=== PATIENT | male | born 1980 | race Caucasian/White ===

== ENCOUNTER 2020-07-14 13:31 | Emergency (ER) | payer OTHER ==
[2020-07-14] MEDS ORDERED: Sodium Chloride 0.9% 2.5 ML Syringe FLUSH PRN (15:41)
[2020-07-14] MEDS ORDERED: Sodium Chloride 0.9% 10 ML Syringe FLUSH PRN (15:41)
[2020-07-14] MEDS ORDERED: Ondansetron 4 MG/2 ML SDV IVPUSH ONE (15:42)
[2020-07-14] MEDS ORDERED: Morphine 4 MG/ML Syringe IVPUSH ONE (15:42)
[2020-07-14] MEDS ORDERED: Lactated Ringers 1,000 ML IV ONE (15:42)
--- NOTE | 2020-07-14 15:45 | EDM.PDOC ---
ED HPI GENERAL MEDICAL PROBLEM - General Chief Complaint: Gastrointestinal Problem Stated Complaint: BLOOD IN STOOL Time Seen by Provider: 07/14/20 15:32 - History of Present Illness INITIAL COMMENTS - FREE TEXT/NARRATIVE: 40-year-old male history of back pain she is in the past multiple prior abdominal surgeries as well as IBS was presenting with some large painful bowel movements cramping lower abdominal pain and bright red blood per rectum. Patient states that he had a very large uncomfortable bowel movement yesterday was associated with some sweating and lightheadedness. He has some blood at the very end of this visit became more diarrhea-like. He had similar blood and mucus-like bowel movements.the course of the day today. No chest pain moderate currently 6 out of 10 cramping suprapubic abdominal pain is associated with this no nausea no vomiting no fevers. Pain worsens with bowel movements no alleviating factors or other associated symptoms. abdomen Pain Score (Numeric/FACES): 3 - Related Data Allergies Allergy/AdvReac Type Severity Reaction Status Date / Time No Known Allergies Allergy Verified 07/14/20 15:53 Home Meds: Home Meds Baclofen 1 tab PO BID 07/14/20 [History] Cetirizine HCl [Zyrtec] 1 tab PO DAILY 07/14/20 [History] Dicyclomine [Bentyl] 20 mg PO QIDACANDBED PRN 6 Days #24 tab 07/14/20 [Rx] Hydrocortisone Acetate 25 mg RC BID 7 Days #14 supp.rect 07/14/20 [Rx] ED ROS GENERAL - Review of Systems Review Of Systems: See Below Free Text/Narrative/Comment: General: No fever. Skin: No rash. Eyes: No vision problems. ENT: No sore throat. Neck: No neck stiffness. Respiratory: No shortness of breath. Cardiac: No chest pain. Gastrointestinal: Per HPI Urinary: No dysuria. Musculoskeletal: No myalgias/arthralgias. Neurologic: No headache. ED EXAM, GENERAL - Physical Exam Exam: See Below Free Text/Narrative:: General Appearance: No acute distress, appears comfortable Skin: No rash HEENT: Normocephalic/atraumatic, sclera anicteric, mucous membranes dry Neck: Normal range of motion Chest and Lungs: Bilateral breath sounds, clear to auscultation Cardiovascular: Regular rate and rhythm, no murmur Abdomen: Suprapubic tenderness without guarding or rebound Back: Normal Musculoskeletal: No edema or tenderness Neurologic: Awake, alert, no obvious deficits, moving all extremities Psychiatric: Appropriate, cooperative Course - Vital Signs Last Recorded V/S: Last Vital Signs Temp Pulse 60 07/14/20 18:50 Resp 16 07/14/20 18:50 BP 123/77 07/14/20 18:50 Pulse Ox 95 07/14/20 18:50 - Orders/Labs/Meds Orders: Active Orders 24 hr Category Date Time Status Saline Lock Insert [OM.PC] Stat Oth 07/14/20 15:41 Ordered Labs: Laboratory Tests 07/14/20 07/14/20 Range/Units 16:00 16:28 WBC 16.58 H (4.0-11.0) K/uL RBC 4.87 (4.50-5.90) M/uL Hgb 15.4 (13.0-17.0) g/dL Hct 42.7 (38.0-50.0) % MCV 87.7 (80.0-98.0) fL MCH 31.6 (27.0-32.0) pg MCHC 36.1 (31.0-37.0) g/dL RDW Std Deviation 38.2 (28.0-62.0) fl RDW Coeff of Romulo 12 (11.0-15.0) % Plt Count 249 (150-400) K/uL MPV 10.10 (7.40-12.00) fL Neut % (Auto) 82.1 H (48.0-80.0) % Lymph % (Auto) 11.3 L (16.0-40.0) % [place] % (Auto) 6.4 (0.0-15.0) % Eos % (Auto) 0.1 (0.0-7.0) % Baso % (Auto) 0.1 (0.0-1.5) % Neut # (Auto) 13.6 H (1.4-5.7) K/uL Lymph # (Auto) 1.9 (0.6-2.4) K/uL [place] # (Auto) 1.1 H (0.0-0.8) K/uL Eos # (Auto) 0.0 (0.0-0.7) K/uL Baso # (Auto) 0.0 (0.0-0.1) K/uL Nucleated RBC % 0.0 /100WBC Nucleated RBCs # 0 K/uL Sodium 143 (136-148) mmol/L Potassium 4.0 (3.5-5.1) mmol/L Chloride 107 (98-107) mmol/L Carbon Dioxide 25.0 (21.0-32.0) mmol/L BUN 13 (7.0-18.0) mg/dL Creatinine 1.0 (0.8-1.3) mg/dL Est Cr Clr Drug Dosing 95.95 mL/min Estimated GFR (MDRD) > 60.0 ml/min Glucose 119 H (74-106) mg/dL Calcium 8.9 (8.5-10.1) mg/dL Total Bilirubin 0.4 (0.2-1.0) mg/dL AST 20 (15-37) IU/L ALT 76 H (14-63) IU/L Alkaline Phosphatase 64 (46-116) U/L Total Protein 7.2 (6.4-8.2) g/dL Albumin 4.1 (3.4-5.0) g/dL Globulin 3.1 (2.6-4.0) g/dL Albumin/Globulin Ratio 1.3 (0.9-1.6) Meds: Medications Discontinued Medications Generic Name Dose Route Start Last Admin Trade Name Freq PRN Reason Stop Dose Admin Dicyclomine HCl 10 mg 07/14/20 18:22 07/14/20 18:30 Dicyclomine 10 Mg Cap PO 07/14/20 18:23 10 mg ONETIME ONE Administration Lactated Ringer's 1,000 mls @ 999 mls/hr 07/14/20 15:42 07/14/20 16:04 Ringers, Lactated IV 07/14/20 16:42 999 mls/hr .BOLUS ONE Administration Iopamidol 100 ml 07/14/20 17:35 07/14/20 17:35 Iopamidol 755 Mg/Ml 500 Ml Multipack Bottle IVPUSH 07/14/20 17:36 100 ml ONETIME ONE Administration Ketorolac Tromethamine 15 mg 07/14/20 18:22 07/14/20 18:30 Ketorolac 30 Mg/Ml Sdv IVPUSH 07/14/20 18:23 15 mg ONETIME ONE Administration Morphine Sulfate 4 mg 07/14/20 15:42 07/14/20 16:02 Morphine 4 Mg/Ml Syringe IVPUSH 07/14/20 15:43 4 mg ONETIME ONE Administration Ondansetron HCl 4 mg 07/14/20 15:42 07/14/20 16:03 Ondansetron 4 Mg/2 Ml Sdv IVPUSH 07/14/20 15:43 4 mg ONETIME ONE Administration Sodium Chloride 10 ml 07/14/20 15:41 07/14/20 16:04 Sodium Chloride 0.9% 10 Ml Syringe FLUSH 10 ml ASDIRECTED PRN Administration Keep Vein Open Sodium Chloride 2.5 ml 07/14/20 15:41 07/14/20 16:03 Sodium Chloride 0.9% 2.5 Ml Syringe FLUSH 2.5 ml ASDIRECTED PRN Administration Keep Vein Open Departure - Departure Time of Disposition: 19:10 Disposition: Home, Self-Care 01 Condition: Good Clinical Impression: Enteritis - Discharge Information *PRESCRIPTION DRUG MONITORING PROGRAM REVIEWED*: Not Applicable *COPY OF PRESCRIPTION DRUG MONITORING REPORT IN PATIENT WALKER: Not Applicable Prescriptions: Dicyclomine [Bentyl] 20 mg PO QIDACANDBED PRN 6 Days #24 tab PRN Reason: abdominal cramps Hydrocortisone Acetate 25 mg RC BID 7 Days #14 supp.rect Instructions: Viral Gastroenteritis, Adult, [id number], Anal Fistula Forms: ED Department Discharge Additional Instructions: Your symptoms are most likely caused by viral intestinal infection. Your CT scan showed no signs of colitis no signs of diverticulitis or other concerning process. Your annual in rectal pain and blood is most likely due to irritation of the mucus lining of the area because of the large volume bowel movements that you been having. You can use the suppository to help with some of this inflammation and discomfort. You can also use the Bentyl to help with your cramping abdominal pain. Your symptoms should improve over the next couple days. If your symptoms worsen or new symptoms develop that concern you please call your doctor or return to the ER. - My Orders Last 24 Hours: My Active Orders 07/14/20 15:41 Saline Lock Insert [OM.PC] Stat - Assessment/Plan Last 24 Hours: My Active Orders 07/14/20 15:41 Saline Lock Insert [OM.PC] Stat Assessment:: 40-year-old male presented with signs symptoms most consistent with lower GI bleeding given the preceding very large painful bowel movement I would favor anal fissure versus hemorrhoid diverticular bleeding considered as well but pain is atypical for this. Diverticulitis considered CBC and CMP pending if patient has elevated white blood cell count then would consider CT scan at that time. Nothing suggest small bowel obstruction there is no nausea or vomiting. Patient abdomen is not peritoneal take. Morphine Zofran for symptoms patient is dry mucous membranes and IV fluid will be provided. 1830: Patient's labs show mild leukocytosis and so CT was added. Hemoglobin is good. CT scan shows likely enteritis. The possibility of early or partial bowel obstruction was carefully considered. However the patient has no nausea he has no vomiting he has no upper abdominal symptoms of any kind and given this his presentation is consistent with enteritis and inconsistent with acute bowel obstruction. Digital rectal exam reveals light brown stool without gross blood patient had significant pain with rectal exam and given this anal and rectal irritation potentially internal hemorrhoid or small fissure is most likely to explain his symptoms. Patient will be given Toradol Bentyl for his symptoms and if he tolerates p.o. should be safe for discharge. Pt signed out to Dr. Lira at 1900 pending PO trial results and final disposition.
[2020-07-14 17:05] LABS: BLOOD UREA NITROGEN,BUN 13 mg/dL (7.0-18.0); CHLORIDE,CL 107 mmol/L (98-107); GLUCOSE RANDOM 119 mg/dL (74-106); SODIUM,NA 143 mmol/L (136-148)
[2020-07-14] MEDS ORDERED: Iopamidol 755 MG/ML 500 ML Multipack Bottle IVPUSH ONE (17:35)
--- NOTE | 2020-07-14 18:18 | CT ---
INDICATION: Abdominal pain. Leukocytosis TECHNIQUE: CT abdomen and pelvis acquired with IV contrast. 100 mL of Isovue 370 administered. COMPARISON: None available FINDINGS: Lower chest: Minimal subsegmental atelectasis. A partially calcified sub centimeter soft tissue nodule in the left epicardial fat, a granuloma versus calcified lymph node. Liver: Hepatic steatosis. Spleen: Mild splenomegaly measuring 14.3 cm craniocaudally Pancreas: Unremarkable. Gallbladder and bile ducts: Cholecystectomy. Adrenal glands: Unremarkable. Kidneys: No hydronephrosis. A small sub centimeter left renal low-density lesion, statistically a small cyst. GI tract: Surgical clips adjacent to the gastroesophageal junction. Several mildly dilated fluid and gas-filled left abdominal jejunal segments with gradual caliber decrease in the left lower abdomen to decompressed small bowel. Post appendectomy changes. No significant pericolonic changes. Vascular structures: Unremarkable. Lymph nodes: Unremarkable. Miscellaneous: No significant free fluid or free air. Pelvic Organs: Upper limits of normal prostatic size. No gross bladder abnormality seen. Bones: Postsurgical changes in the lower lumbar spine, status post posterior L5-S1 fixation and fusion. IMPRESSION: Mildly dilated left abdominal jejunal segments with a gradual caliber decrease, which could represent enteritis versus early or partial obstruction. Correlate clinically. Hepatic steatosis. Mild splenomegaly. Please note that all CT scans at this facility use dose modulation, iterative reconstruction, and/or weight-based dosing when appropriate to reduce radiation dose to as low as reasonably achievable. Dictated by Yannick Arce MD @ 07/14/2020 6:17:[address] Yannick Arce @ Jul 14 2020 6:17PM
[2020-07-14] MEDS ORDERED: Ketorolac 30 MG/ML SDV IVPUSH ONE (18:22)
[2020-07-14] MEDS ORDERED: Dicyclomine 10 MG Cap PO ONE (18:22)
== END 2020-07-14 18:59 | disposition home or self-care (01) ==
LOC: MW.ED 13:31
DX: K52.9 Noninfective gastroenteritis and colitis, unspecified (principal)
CPT/HCPCS: 36415; 74177; 80053; 85025; 96374; 96375; 99284; A9270; J1885; J2270; J2405; J7120; Q9967